=== PATIENT | female | born 1990 | race African-American/Black ===

== ENCOUNTER 2021-03-12 08:18 | Emergency (ER) | payer SELFPAY ==
[~2021-03-12] VITALS: Ht 160 cm; Wt 90.1 kg
[2021-03-12 08:45] VITALS: BP 122/80
[2021-03-12] MEDS ORDERED: ondansetron 4mg rapidly disintigrating tab PO ONE (09:00)
[2021-03-12 09:45] LABS: URINE HCG NEGATIVE (NEG)
[2021-03-12] MEDS ORDERED: normal saline 1000ml 1,000 ML IV ONE (12:05)
[2021-03-12 12:34] LABS: BASOPHILS % (AUTO) 0.4 % (0-1); EOSINOPHILS # (AUTO) 0.1 X10'3 (0-0.9); EOSINOPHILS % (AUTO) 1.4 % (0-6); HEMATOCRIT 38.9 % (35.0-45.0); LYMPHOCYTES # (AUTO) 2.7 X10'3 (1.1-4.8); LYMPHOCYTES % (AUTO) 32.5 % (21-51); MEAN CORPUSCULAR HEMOGLOBIN 26.6 PG (27.0-31.0); MEAN CORPUSCULAR HGB CONC 33.4 g/dL (33.0-36.5); MEAN CORPUSCULAR VOLUME 79.8 FL (78-98); MONOCYTES # (AUTO) 0.7 X10'3 (0-0.9); MONOCYTES % (AUTO) 8.1 % (2-12); NEUTROPHILS # (AUTO) 4.7 X10'3 (1.8-7.7); NEUTROPHILS % (AUTO) 57.6 % (42-75); PLATELET COUNT 221 X10'3 (140-440); RED BLOOD COUNT 4.88 X10'6 (4.20-5.60); RED CELL DISTRIBUTION WIDTH 15.6 % (11.5-14.5); WHITE BLOOD COUNT 8.1 X10'3 (4.5-11.0)
[2021-03-12 12:44] LABS: ALANINE AMINOTRANSFERASE 57 U/L (12-78); ALBUMIN 3.3 G/DL (3.4-5.0); ALBUMIN/GLOBULIN RATIO 0.8 (1.1-1.5); ALKALINE PHOSPHATASE 124 IU/L (46-116); ANION GAP 11 (8-16); ASPARTATE AMINO TRANSFERASE 25 U/L (10-37); BILIRUBIN,TOTAL 0.2 MG/DL (0.1-1.0); BLOOD UREA NITROGEN 14 MG/DL (7-18); BUN/CREATININE RATIO 15.6 (6.6-38.0); CALCIUM 9.4 MG/DL (8.5-10.1); CHLORIDE 106 MMOL/L (99-107); GLUCOSE 89 MG/DL (70-104); POTASSIUM 3.9 MMOL/L (3.5-5.1); SODIUM 141 MMOL/L (135-145); TOTAL CARBON DIOXIDE 24.1 MMOL/L (24-32); TOTAL PROTEIN 7.6 G/DL (6.4-8.2); eGFR 74 ML/MIN
[2021-03-12 12:50] LABS: BETA HCG,QUANTITATIVE < 1.0 mIU/ml
[2021-03-12] MEDS ORDERED: iohexol 350MG/ML 100ml bottle IV ONE (13:40)
[2021-03-12] MEDS ORDERED: dexamethasone sod phosphate 10mg/ml inj IV STA (14:45)
[2021-03-12] MEDS ORDERED: diphenhydrAMINE 50 mg/ml inj IV ONE (14:45)
[2021-03-12] MEDS ORDERED: proCHLORperazine 10 MG/2 ml inj IV ONE (14:45)
[2021-03-12] MEDS ORDERED: ketorolac trometh. 30mg/ml inj. IV ONE (14:50)
== END 2021-03-12 15:42 | disposition home or self-care (01) ==
LOC: ER 08:18
DX: G43.909 Migraine, unspecified, not intractable, without status migrainosus (principal); H54.7 Unspecified visual loss; Z98.890 Other specified postprocedural states
CPT/HCPCS: 36415; 70250; 70496; 80053; 81025; 84702; 85025; 99285; Q9967

== ENCOUNTER 2021-03-21 16:34 | Emergency (ER) | payer OTHER ==
[~2021-03-21] VITALS: Ht 160 cm; Wt 90.0 kg
[2021-03-21 18:20] VITALS: BP 154/98
[2021-03-21 19:02] LABS: BASOPHILS # (AUTO) 0.1 X10'3 (0-0.2); BASOPHILS % (AUTO) 1.2 % (0-1); EOSINOPHILS # (AUTO) 0.1 X10'3 (0-0.9); EOSINOPHILS % (AUTO) 0.8 % (0-6); HEMATOCRIT 37.5 % (35.0-45.0); HEMOGLOBIN 12.5 g/dl (12.0-16.0); LYMPHOCYTES # (AUTO) 2.9 X10'3 (1.1-4.8); LYMPHOCYTES % (AUTO) 25.4 % (21-51); MEAN CORPUSCULAR HEMOGLOBIN 26.5 PG (27.0-31.0); MEAN CORPUSCULAR HGB CONC 33.4 g/dL (33.0-36.5); MEAN CORPUSCULAR VOLUME 79.3 FL (78-98); MEAN PLATELET VOLUME 9.3 FL (7.4-10.4); MONOCYTES # (AUTO) 0.7 X10'3 (0-0.9); MONOCYTES % (AUTO) 5.9 % (2-12); NEUTROPHILS # (AUTO) 7.6 X10'3 (1.8-7.7); NEUTROPHILS % (AUTO) 66.7 % (42-75); PLATELET COUNT 250 X10'3 (140-440); RED BLOOD COUNT 4.73 X10'6 (4.20-5.60); RED CELL DISTRIBUTION WIDTH 16.3 % (11.5-14.5); WHITE BLOOD COUNT 11.3 X10'3 (4.5-11.0)
[2021-03-21 19:19] LABS: ALANINE AMINOTRANSFERASE 59 U/L (12-78); ALBUMIN 3.2 G/DL (3.4-5.0); ALBUMIN/GLOBULIN RATIO 0.7 (1.1-1.5); ALKALINE PHOSPHATASE 125 IU/L (46-116); ANION GAP 12 (8-16); ASPARTATE AMINO TRANSFERASE 18 U/L (10-37); BILIRUBIN,TOTAL 0.1 MG/DL (0.1-1.0); BLOOD UREA NITROGEN 11 MG/DL (7-18); BUN/CREATININE RATIO 13.8 (6.6-38.0); CALCIUM 8.8 MG/DL (8.5-10.1); CHLORIDE 105 MMOL/L (99-107); GLUCOSE 108 MG/DL (70-104); SODIUM 141 MMOL/L (135-145); TOTAL CARBON DIOXIDE 24.4 MMOL/L (24-32); TOTAL PROTEIN 7.7 G/DL (6.4-8.2); eGFR > 90 ML/MIN
[2021-03-21 19:27] LABS: URINE HCG NEGATIVE (NEG)
[2021-03-21 19:34] LABS: CLARITY,URINE CLEAR (Clear); COLOR,URINE YELLOW (Yellow); GLUCOSE, URINE 100 mg/dl (Neg); KETONES,URINE NEGATIVE (Neg); LEUKOCYTE ESTERASE ,URINE NEGATIVE (Neg); NITRITES, URINE NEGATIVE (Neg); OCCULT BLOOD,URINE NEGATIVE (Neg); PROTEIN,URINE NEGATIVE (Neg); UROBILINOGEN,URINE 0.2 E.U/dL (0.2-1.0)
[2021-03-21 19:36] LABS: UA COLLECTION TYPE CLN CATCH MIDSTREAM
== END 2021-03-21 20:03 | disposition home or self-care (01) ==
LOC: ER 16:35
DX: G91.9 Hydrocephalus, unspecified (principal); E66.01 Morbid (severe) obesity due to excess calories
CPT/HCPCS: 36415; 70450; 80053; 81003; 81025; 82948; 85025; 99284

== ENCOUNTER 2021-05-14 14:22 | Emergency (ER) | payer MEDICAID ==
[~2021-05-14] VITALS: Ht 160 cm; Wt 103.0 kg
[2021-05-14 15:02] VITALS: BP 150/85
== END 2021-05-14 22:23 | disposition left against medical advice (07) ==
LOC: ER 14:23
DX: R25.1 Tremor, unspecified (principal); Z53.21 Procedure and treatment not carried out due to patient leaving prior to being seen by health care provider

== ENCOUNTER 2021-05-28 08:38 | Emergency (ER) | payer MEDICAID ==
[~2021-05-28] VITALS: Ht 154.9 cm; Wt 96.4 kg
[2021-05-28 09:20] VITALS: BP 147/99
== END 2021-05-28 12:54 | disposition left against medical advice (07) ==
LOC: ER 08:39
DX: M79.604 Pain in right leg (principal); Z53.21 Procedure and treatment not carried out due to patient leaving prior to being seen by health care provider
CPT/HCPCS: 73564

== ENCOUNTER 2021-07-18 05:01 | Emergency (ER) | payer MEDICAID ==
[~2021-07-18] VITALS: Ht 157.5 cm; Wt 96.4 kg
--- NOTE | 2021-07-18 07:28 | NUR ---
attempted x3 to draw blood, start iv unsuccessful.
[2021-07-18 08:42] LABS: HCG SERUM QL NEGATIVE
--- NOTE | 2021-07-18 09:47 | NUR ---
pt sleeping quietly
[2021-07-18 09:48] VITALS: BP 131/84
== END 2021-07-18 11:50 | disposition home or self-care (01) ==
LOC: ER 05:02
DX: M25.561 Pain in right knee (principal); E11.9 Type 2 diabetes mellitus without complications; Z88.0 Allergy status to penicillin
CPT/HCPCS: 36415; 73564; 84703; 99285

== ENCOUNTER 2021-08-15 01:22 | Emergency (ER) | payer MEDICAID ==
[~2021-08-15] VITALS: Ht 157.5 cm; Wt 100.0 kg
--- NOTE | 2021-08-15 03:12 | NUR ---
Pt states she has a GEOGRAPHY DEPARTMENT CHAIR shunt and it feels like it does when she has a problem with the GEOGRAPHY DEPARTMENT CHAIR shunt.
--- NOTE | 2021-08-15 03:34 | NUR ---
Pt to CT via WC, pink, alert, no acute/resp distress.
[2021-08-15] MEDS ORDERED: proCHLORperazine 10 MG/2 ml inj IM ONE (04:00)
[2021-08-15] MEDS ORDERED: acetaminophen 325mg tablet PO ONE (04:00)
[2021-08-15] MEDS ORDERED: ketorolac trometh inj. 60 MG/2 ML VIAL IM ONE (04:00)
--- NOTE | 2021-08-15 04:38 | NUR ---
Pt ambulatory to bathroom for ua spec. labeled and walked spec to lab.
[2021-08-15 04:56] LABS: URINE HCG NEGATIVE (NEG)
[2021-08-15 05:03] LABS: CLARITY,URINE CLEAR (Clear); COLOR,URINE YELLOW (Yellow); GLUCOSE, URINE NEGATIVE (Neg); KETONES,URINE NEGATIVE (Neg); LEUKOCYTE ESTERASE ,URINE NEGATIVE (Neg); NITRITES, URINE NEGATIVE (Neg); OCCULT BLOOD,URINE NEGATIVE (Neg); PH,URINE 6.5 (4.8-8.0); PROTEIN,URINE NEGATIVE (Neg); UROBILINOGEN,URINE 0.2 E.U/dL (0.2-1.0)
[2021-08-15] MEDS ORDERED: SUMA25TA35 PO (05:04)
[2021-08-15] MEDS ORDERED: SUMAtriptan succ. 6 MG/0.5ml vial SQ ONE (05:05)
[2021-08-15 05:11] LABS: UA COLLECTION TYPE NON-SPECIFIED
[2021-08-15 05:12] VITALS: BP 137/72
== END 2021-08-15 05:13 | disposition home or self-care (01) ==
LOC: ER 01:22
DX: G43.909 Migraine, unspecified, not intractable, without status migrainosus (principal); E11.9 Type 2 diabetes mellitus without complications; Z88.0 Allergy status to penicillin; Z79.899 Other long term (current) drug therapy
CPT/HCPCS: 70450; 81003; 81025; 96372; 99284; J0780; J1885

== ENCOUNTER 2021-09-14 19:20 | Emergency (ER) | payer MEDICAID ==
[~2021-09-14] VITALS: Ht 154.9 cm; Wt 109.1 kg
[~2021-09-14 19:20] MED LIST: SUMA25TA35 PO
[2021-09-14] MEDS ORDERED: dexamethasone sod phosphate 10mg/ml inj IV STA (19:53)
[2021-09-14] MEDS ORDERED: metoclopramide 5 mg/ml inj IV ONE (19:55)
[2021-09-14] MEDS ORDERED: normal saline 1000ML IV soln IVB ONE (19:55)
[2021-09-14] MEDS ORDERED: LORazepam 2 mg/ml vial IV ONE (20:00)
[2021-09-14] MEDS ORDERED: ketorolac trometh. 30mg/ml inj. IV ONE (20:00)
[2021-09-14 20:29] LABS: BASOPHILS % (AUTO) 0.3 % (0-1); EOSINOPHILS # (AUTO) 0.1 X10'3 (0-0.9); HEMATOCRIT 33.5 % (35.0-45.0); HEMOGLOBIN 11.1 g/dl (12.0-16.0); LYMPHOCYTES # (AUTO) 2.5 X10'3 (1.1-4.8); LYMPHOCYTES % (AUTO) 28.2 % (21-51); MEAN CORPUSCULAR HEMOGLOBIN 26.1 PG (27.0-31.0); MEAN CORPUSCULAR HGB CONC 33.2 g/dL (33.0-36.5); MEAN CORPUSCULAR VOLUME 78.6 FL (78-98); MONOCYTES # (AUTO) 0.5 X10'3 (0-0.9); MONOCYTES % (AUTO) 5.5 % (2-12); NEUTROPHILS # (AUTO) 5.7 X10'3 (1.8-7.7); PLATELET COUNT 211 X10'3 (140-440); RED BLOOD COUNT 4.26 X10'6 (4.20-5.60); RED CELL DISTRIBUTION WIDTH 15.8 % (11.5-14.5); WHITE BLOOD COUNT 8.8 X10'3 (4.5-11.0)
[2021-09-14 20:43] LABS: ALANINE AMINOTRANSFERASE 23 U/L (12-78); ALBUMIN 3.3 G/DL (3.4-5.0); ALBUMIN/GLOBULIN RATIO 0.8 (1.1-1.5); ALKALINE PHOSPHATASE 119 IU/L (46-116); ANION GAP 7 (8-16); ASPARTATE AMINO TRANSFERASE 14 U/L (10-37); BILIRUBIN,TOTAL 0.2 MG/DL (0.1-1.0); BLOOD UREA NITROGEN 15 MG/DL (7-18); BUN/CREATININE RATIO 15.8 (6.6-38.0); CALCIUM 9.2 MG/DL (8.5-10.1); CHLORIDE 105 MMOL/L (99-107); CREATININE 0.95 MG/DL (0.40-0.90); ETHANOL < 0.010 GM/DL (0.0-0.010); GLUCOSE 132 MG/DL (70-104); POTASSIUM 3.9 MMOL/L (3.5-5.1); SODIUM 139 MMOL/L (135-145); TOTAL CARBON DIOXIDE 26.8 MMOL/L (24-32); TOTAL PROTEIN 7.6 G/DL (6.4-8.2); eGFR 84 ML/MIN
[2021-09-14 20:48] LABS: URINE AMPHETAMINE SCREEN NEGATIVE (Neg); URINE BARBITUATE SCREEN NEGATIVE (Neg); URINE BENZODIAZEPINES SCREEN NEGATIVE (Neg); URINE CANNABINOID SCREEN NEGATIVE (Neg); URINE COCAINE SCREEN NEGATIVE (Neg); URINE METHADONE SCREEN NEGATIVE (Neg); URINE OPIATE SCREEN NEGATIVE (Neg); URINE PHENCYCLIDINE SCREEN NEGATIVE (Neg)
[2021-09-14 20:54] LABS: CLARITY,URINE CLOUDY (Clear); COLOR,URINE RED (Yellow); UA COLLECTION TYPE CLN CATCH MIDSTREAM
[2021-09-14 20:55] LABS: BACTERIA,URINE NONE SEEN /HPF (Neg); RBC,URINE TNTC /HPF (0-2); WBC,URINE 0-4 /HPF (0-4)
[2021-09-14 20:56] LABS: MUCUS STRANDS NONE SEEN /LPF (Neg); SQUAMOUS EPITHELIAL CELL,UR FEW /LPF (FEW)
[2021-09-14 22:37] VITALS: BP 153/86
== END 2021-09-14 22:41 | disposition home or self-care (01) ==
LOC: ER 19:21
DX: G43.909 Migraine, unspecified, not intractable, without status migrainosus (principal); H54.62 Unqualified visual loss, left eye, normal vision right eye; E11.9 Type 2 diabetes mellitus without complications; Z86.2 Personal history of diseases of the blood and blood-forming organs and certain disorders involving the immune mechanism; Z88.0 Allergy status to penicillin; Z79.899 Other long term (current) drug therapy
CPT/HCPCS: 36415; 80053; 80305; 80320; 81001; 85025; 96361; 96374; 96375; 99284; J1100; J1885; J2060; J2765; J7030

== ENCOUNTER 2021-09-17 19:02 | Emergency (ER) | payer MEDICAID ==
[~2021-09-17] VITALS: Ht 157.5 cm; Wt 100.0 kg
[2021-09-17 19:05] VITALS: BP 137/73
[2021-09-17] MEDS ORDERED: ALBU8HFA PO (20:44)
[2021-09-17] MEDS ORDERED: DOXY100C43 PO (20:44)
== END 2021-09-17 20:57 | disposition home or self-care (01) ==
LOC: ER 19:03
DX: J20.9 Acute bronchitis, unspecified (principal); E11.9 Type 2 diabetes mellitus without complications; Z20.822 Contact with and (suspected) exposure to COVID-19; Z86.2 Personal history of diseases of the blood and blood-forming organs and certain disorders involving the immune mechanism; Z98.890 Other specified postprocedural states; Z88.0 Allergy status to penicillin; Z79.899 Other long term (current) drug therapy
CPT/HCPCS: 71045; 87502; 87503; 87635; 99284; C9803

== ENCOUNTER 2021-11-11 23:09 | Emergency (ER) | payer MEDICAID ==
[~2021-11-11] VITALS: Ht 157.5 cm; Wt 97.7 kg
[2021-11-11 23:23] VITALS: BP 168/108
[2021-11-12] MEDS ORDERED: dexamethasone sod phosphate 10mg/ml inj IM STA (00:42)
[2021-11-12] MEDS ORDERED: morphine 4 MG/ML inj SYRINge IM ONE (00:45)
[2021-11-12] MEDS ORDERED: proCHLORperazine 10 MG/2 ml inj IM ONE (00:45)
== END 2021-11-12 03:11 | disposition left against medical advice (07) ==
LOC: ER 23:09
DX: G43.909 Migraine, unspecified, not intractable, without status migrainosus (principal); R05.9 Cough, unspecified; Z53.21 Procedure and treatment not carried out due to patient leaving prior to being seen by health care provider
CPT/HCPCS: 70450; 93005

== ENCOUNTER 2022-11-24 15:08 | Emergency (ER) | payer MEDICAID ==
[~2022-11-24] VITALS: Ht 160 cm; Wt 97.2 kg
[2022-11-24 16:20] VITALS: BP 150/94; PULSE 101; TEMP 97.6; O2SAT 97
[2022-11-24] MEDS ORDERED: ketorolac trometh. 30mg/ml inj. IV ONE (19:35)
[2022-11-24] MEDS ORDERED: metoclopramide 5 mg/ml inj IV ONE (19:35)
[2022-11-24] MEDS ORDERED: diazepam inj 5 MG/ML inj. IV ONE (19:35)
[2022-11-24] MEDS ORDERED: diphenhydrAMINE 50 mg/ml inj IV ONE (19:35)
[2022-11-24] MEDS ORDERED: normal saline 1000ml 1,000 ML IV ONE (19:35)
[2022-11-24] MEDS ORDERED: RIZA10TA98 PO (20:01)
[2022-11-24] MEDS ORDERED: EREN70AU2 SQ (20:01)
[2022-11-24] MEDS: morphine 4 MG/ML inj SYRINge IV ONE ×2 (21:34→21:36)
== END 2022-11-24 21:59 | disposition home or self-care (01) ==
LOC: ER 15:09
DX: G43.909 Migraine, unspecified, not intractable, without status migrainosus (principal); E11.9 Type 2 diabetes mellitus without complications; D64.9 Anemia, unspecified; Z98.890 Other specified postprocedural states; Z88.8 Allergy status to other drugs, medicaments and biological substances; Z88.0 Allergy status to penicillin
CPT/HCPCS: 96361; 96374; 96375; 99284; J1200; J1885; J2765; J3360; J7030; J2270

== ENCOUNTER 2023-05-14 20:20 | Emergency (ER) | payer MEDICAID ==
[~2023-05-14] VITALS: Ht 157.5 cm; Wt 103.3 kg
[~2023-05-14 20:20] MED LIST changes: +EREN70AU2 SQ; +RIZA10TA98 PO; -SUMA25TA35 PO
[2023-05-14 20:25] VITALS: BP 163/98; PULSE 80; RESP 16; TEMP 97.7; O2SAT 99
[2023-05-14] MEDS ORDERED: ketorolac trometh inj. 60 MG/2 ML VIAL IM ONE (22:10)
[2023-05-14] MEDS ORDERED: HYDROcodone/acetaminophen 10/325mg tab PO ONE (22:10)
[2023-05-14] MEDS ORDERED: diphenhydrAMINE 50 mg/ml inj IM ONE (22:10)
[2023-05-14] MEDS ORDERED: metoclopramide 5 mg/ml inj IM ONE (22:10)
[2023-05-14] MEDS ORDERED: FIOCOC PO ×3 (22:12→23:39)
== END 2023-05-14 23:37 | disposition home or self-care (01) ==
LOC: ER 20:20
DX: G43.909 Migraine, unspecified, not intractable, without status migrainosus (principal); E11.9 Type 2 diabetes mellitus without complications; Z86.2 Personal history of diseases of the blood and blood-forming organs and certain disorders involving the immune mechanism; Z88.8 Allergy status to other drugs, medicaments and biological substances; Z79.899 Other long term (current) drug therapy
CPT/HCPCS: 96372; 99284; J1200; J1885; J2765

== ENCOUNTER 2023-08-05 15:09 | Outpatient (CLI) | payer MEDICAID ==
[~2023-08-05 15:09] MED LIST changes: +FIOCOC PO
== END 2023-08-05 23:59 | disposition home or self-care (01) ==
LOC: RAD 15:09
PROVIDERS: ATTEND Physician Assistant
DX: M79.5 Residual foreign body in soft tissue (principal)
CPT/HCPCS: 73630